=== PATIENT | female | born 1950 ===

== ENCOUNTER → 2017-04-29 09:58 | Emergency (ER) | payer MEDICARE ==
[~2017-04-29 09:58] MED LIST: Iohexol 350* (CONTRAST) 500 ML MDV IV ONE
[2017-04-29 10:44] LABS: Hematocrit 42 % (35-47); Hemoglobin 13.8 g/dl (12.0-16.0); Mean Corpuscular HGB Conc 33 g/dl (31-36); Mean Corpuscular Hemoglobin 30 pg (27-31); Mean Corpuscular Volume 92 fL (80-97); Mean Platelet Volume 8 um3 (7.4-10.4); Red Blood Count 4.54 10^6/ul (4.0-5.4); Red Cell Distribution Width 15 % (10.5-15); White Blood Count 7.5 10^3/ul (3.5-10.8)
--- NOTE | 2017-04-29 10:49 | ED ---
GI/ HPI - HPI Summary HPI Summary: 66F presents with right sided flank and RUQ since . She states it feels like a muscle spasm type pain. It is tender to palpation. She admits to nausea. She renato any vomiting, diarrhea or constipation. She has SOB and cough at baseline which is unchanged which trying to figure out if is asthma or sarcoidosis. She has been using celexa for pain. She denies any chest pain. She denies any dysuria or hematuria. She denies any injury. She denies any fever. She has not been lifting things. She had her gallbladder removed. pain comes in waves. She has never had this before. She has PMH of breast CA, HTN. - History of Current Complaint Chief Complaint: EDChestWallPain Time Seen by Provider: 04/29/17 10:08 Stated Complaint: RT FLANK PAIN Pain Intensity: 7 - Allergy/Home Medications Allergies/Adverse Reactions: Allergies Allergy/AdvReac Type Severity Reaction Status Date / Time Aspirin [ASA] Allergy Intermediate See Comment Verified 04/29/17 10:05 Dipyridamole [From Aggrenox] Allergy Intermediate See Comment Verified 04/29/17 10:05 Fentanyl Allergy Intermediate Vomiting Verified 04/29/17 10:05 Morphine Allergy Intermediate Vomiting Verified 04/29/17 10:05 Oxycodone Allergy Intermediate Vomiting Verified 04/29/17 10:05 Primidone Allergy Unknown Unknown Verified 04/29/17 10:05 Reaction Details PMH/Surg Hx/FS Hx/Imm Hx Endocrine/Hematology History: Denies: Hx Anticoagulant Therapy, Hx Diabetes, Hx Thyroid Disease, Other Endocrine/Hematological Disorders Cardiovascular History: Reports: Hx Hypercholesterolemia, Hx Hypertension, Other Cardiovascular Problems/Disorders - Hx of heart arrhythmia Denies: Hx Pacemaker/ICD Respiratory History: Reports: Hx Asthma Denies: Hx Chronic Obstructive Pulmonary Disease (COPD), Other Respiratory Problems/Disorders GI History: Reports: Other GI Disorders - Ulcerative Colitis History: Denies: Hx Renal Disease, Other Problems/Disorders Musculoskeletal History: Denies: Other Musculoskeletal History Sensory History: Reports: Hx Contacts or Glasses - Glasses, Hx Vision Problem Denies: Hx Hearing Aid, Other Sensory Impairments Opthamlomology History: Reports: Hx Contacts or Glasses - Glasses, Hx Vision Problem Denies: Other Sensory Impairments Neurological History: Reports: Hx Transient Ischemic Attacks (TIA) Denies: Hx Dementia, Hx Seizures, Other Neuro Impairments/Disorders Psychiatric History: Denies: Hx Panic Disorder, Hx Substance Abuse, Other Psychiatric Issues/ Disorders - Cancer History Cancer Type, Location and Year: Breast CA (L) Hx Hematologic Symptoms: No Hx Chemotherapy: Yes Hx Radiation Therapy: Yes - Surgical History Surgery Procedure, Year, and Place: Mastectomy 06/2000 (L). RT KNEE REPLACEMENT 11/2007. TUBAL X2. PARTIAL HYSTERECTOMY. BILATERAL SHOULDER ARTHROSCOPY. BILATERAL KNEE ARTHRO. GALLBLADDER Infectious Disease History: No Infectious Disease History: Denies: Hx Hepatitis, Hx Human Immunodeficiency Virus (HIV), Traveled Outside the [place] in Last 30 Days - Family History Known Family History: Positive: Hypertension - Social History Alcohol Use: None Substance Use Type: Reports: None Smoking Status (MU): Never Smoked Tobacco Review of Systems Negative: Fever Negative: Chest Pain Negative: Shortness Of Breath Positive: Abdominal Pain - RUQ. Negative: Vomiting, Diarrhea, Nausea Positive: flank pain - right All Other Systems Reviewed And Are Negative: Yes Physical Exam Triage Information Reviewed: Yes Vital Signs On Initial Exam: Initial Vitals Temp Pulse Resp BP Pulse Ox 97.0 F 57 16 143/63 98 04/29/17 10:00 04/29/17 10:00 04/29/17 10:00 04/29/17 10:00 04/29/17 10:00 Vital Signs Reviewed: Yes Appearance: Positive: Well-Appearing Skin: Positive: Warm, Dry Head/Face: Positive: Normal Head/Face Inspection Eyes: Positive: Normal, EOMI, LYNNE, Conjunctiva Clear ENT: Positive: Normal ENT inspection, Pharynx normal, TMs normal Respiratory/Lung Sounds: Positive: Clear to Auscultation, Breath Sounds Present Cardiovascular: Positive: Normal, RRR Abdomen Description: Positive: CVA Tenderness (R), Other: - tenderness over rib 11-12 right and RUQ Bowel Sounds: Positive: Present Musculoskeletal: Positive: Normal Neurological: Positive: Normal Psychiatric: Positive: Normal - Herod Coma Scale Coma Scale Total: 15 Diagnostics - Vital Signs Vital Signs Temp Pulse Resp BP Pulse Ox 04/29/17 10:00 97.0 F 57 16 143/63 98 - Laboratory Lab Results: Lab Results 04/29/17 Range/Units 10:23 WBC 7.5 (3.5-10.8) 10^3/ul RBC 4.54 (4.0-5.4) 10^6/ul Hgb 13.8 (12.0-16.0) g/dl Hct 42 (35-47) % MCV 92 (80-97) fL MCH 30 (27-31) pg MCHC 33 (31-36) g/dl RDW 15 (10.5-15) % Plt Count 245 (150-450) 10^3/ul MPV 8 (7.4-10.4) um3 Neut % (Auto) 52.2 (38-83) % Lymph % (Auto) 32.5 (25-47) % [place] % (Auto) 8.6 (1-9) % Eos % (Auto) 5.7 (0-6) % Baso % (Auto) 1.0 (0-2) % Absolute Neuts (auto) 3.9 (1.5-7.7) 10^3/ul Absolute Lymphs (auto) 2.4 (1.0-4.8) 10^3/ul Absolute Monos (auto) 0.6 (0-0.8) 10^3/ul Absolute Eos (auto) 0.4 (0-0.6) 10^3/ul Absolute Basos (auto) 0.1 (0-0.2) 10^3/ul Absolute Nucleated RBC 0.02 10^3/ul Nucleated RBC % 0.2 Result Diagrams: 04/29/17 10:23 04/29/17 10:23 Lab Statement: Any lab studies that have been ordered have been reviewed, and results considered in the medical decision making process. - CT abd CT Interpretation: No Acute Changes - 1. No renal calculi or signs of urinary obstruction. 2. No CT evidence of acute inflammatory change of the gastrointestinal tract within the limitations of a noncontrast enhanced CT of the abdomen and pelvis. 3. Partially visualized overlying the left anterior chest wall is a well-circumscribed fluid density structure of uncertain clinical significance. Please correlate to physical examination and/or the patient's surgical history. 4. Additional chronic, degenerative and iatrogenic findings described in the body the report. CT Interpretation Completed By: Radiologist cta CT Interpretation: No Acute Changes CT Interpretation Completed By: Radiologist SHAHEENU Course/Dx - Course Course Of Treatment: 66F presents with right sided flank and RUQ since . She states it feels like a muscle spasm type pain. It is tender to palpation. She admits to nausea. She renato any vomiting, diarrhea or constipation. She has SOB and cough at baseline which is unchanged which trying to figure out if is asthma or sarcoidosis. She has been using celexa for pain. She denies any chest pain. She denies any dysuria or hematuria. She denies any injury. She denies any fever. She has not been lifting things. She had her gallbladder removed. pain comes in waves. She has never had this before. on exam has tenderness on ribs 11-12 and on right flank. labs normal wbc and crp. got normal CT and no obstruction. d-dimer came back elevated so got CTA. CTA normal. pain likely muscular. will treat with flexeril twice a day as already takes soma at night. explained that can be very sedating. will have follow up with primary. patient understand and agrees with plan. - Diagnoses Differential Diagnoses - Female: Pyelonephritis, Ureteral Calculi, Other - PE Provider Diagnoses: Right flank pain Discharge - Discharge Plan Condition: Good Disposition: HOME Patient Education Materials: Flank Pain (ED) Referrals: Alessandro Yepez MD [Primary Care Provider] - Additional Instructions: Take normal pain medication Take flexeril twice a day, once in morning and once midday Apply ice or heat to area Follow up with primary within 5 days Return to ED if develop any new or worsening symptoms
[2017-04-29 10:53] LABS: Albumin 3.7 g/dL (3.2-5.2); BUN/Creatinine Ratio 20.5 (8-20); Calcium 9.3 mg/dL (8.6-10.3); EGFR African American 87.9 (>60); EGFR Non-African American 68.4 (>60); Potassium 3.6 mmol/L (3.5-5.0); Total Bilirubin 0.4 mg/dL (0.2-1.0); Total Protein 6.7 g/dL (6.4-8.9)
--- NOTE | 2017-04-29 11:13 | RAD ---
CLINICAL HISTORY: Right flank and right upper quadrant pain. Relevant surgical history includes partial hysterectomy and "gallbladder". COMPARISON: None TECHNIQUE: Noncontrast CT examination of the abdomen and pelvis from the lung bases through the initial tuberosities. FINDINGS: VISUALIZED LUNG BASES: Overlying the left lower anterior chest wall is a well-circumscribed fluid density structure beneath the subcutaneous fat (images 1-3). The visualized lung bases are grossly clear. There is no pleural effusion. ABDOMEN AND PELVIS: Evaluation of the solid organs and vasculature is limited without intravenous contrast. The liver, spleen, pancreas and adrenal glands are grossly normal in appearance. The gallbladder is surgically absent. The kidneys are normal in appearance without focal mass, calcification or signs of hydronephrosis. Evaluation of the gastrointestinal tract is limited without oral contrast. The small and large bowel are not distended.The patient's normal appendix is identified in the right lower quadrant with gas in the lumen. There are no acute inflammatory changes in the right lower quadrant to indicate acute appendicitis. Scattered rectosigmoid diverticula are noted but there are no signs of acute inflammatory change.. There is no gross retroperitoneal or mesenteric lymphadenopathy. The uterus is surgically absent. The abdominal aorta and iliac arteries are normal in course and diameter. Degenerative changes include multilevel loss of intervertebral disc height involving the lower thoracic and lumbar spine.There are no sinister bone lesions. IMPRESSION: 1. No renal calculi or signs of urinary obstruction. 2. No CT evidence of acute inflammatory change of the gastrointestinal tract within the limitations of a noncontrast enhanced CT of the abdomen and pelvis. 3. Partially visualized overlying the left anterior chest wall is a well-circumscribed fluid density structure of uncertain clinical significance. Please correlate to physical examination and/or the patient's surgical history. 4. Additional chronic, degenerative and iatrogenic findings described in the body the report.
--- NOTE | 2017-04-29 12:34 | RAD ---
INDICATION: Right-sided rib pain and elevated d-dimer COMPARISON: Most recent comparison chest x-ray is dated March 06, 2013 TECHNIQUE: Axial source images were acquired following the administration of 87 mL Omnipaque [address] angiographic technique. Coronal and sagittal reconstructed images were constructed and reviewed. FINDINGS: There there are no filling defects in the pulmonary arteries to indicate acute pulmonary embolic disease. There are no focal infiltrates or effusions. There are no pulmonary parenchymal masses. The heart is normal in size. There is no evidence of pericardial effusion. There is no evidence of aortic aneurysm or dissection. There is no mediastinal, hilar, or axillary lymphadenopathy. A left breast prosthesis is noted. Multilevel degenerative changes of the thoracic spine include loss of intervertebral disc height. The gallbladder is surgically absent. IMPRESSION: No CT of evidence of pulmonary embolism or other acute cardiopulmonary abnormality.
[2017-04-29 13:03] VITALS: BP 157/66
[2017-04-29 13:33] LABS: Urine Bacteria Absent (Absent); Urine Bilirubin Negative (Negative); Urine Glucose Negative (Negative); Urine Nitrite Negative (Negative)
== END | disposition home or self-care (01) ==
LOC: ED 09:58
DX: R10.84 Generalized abdominal pain (principal); R10.11 Right upper quadrant pain; R06.02 Shortness of breath; R05 Cough
CPT/HCPCS: 36415; 71275; 74176; 80053; 81003; 81015; 83690; 85025; 85379; 86141; 87086; 99282; Q9967

== ENCOUNTER 2017-07-22 12:47 | Emergency (ER) | payer MEDICARE ==
[2017-07-22 13:00] VITALS: BP 145/76
--- NOTE | 2017-07-22 14:07 | UC ---
Jenny Borjas Emily, scribed for Eliecer Hernandez MD on 07/22/17 at 1358 . Skin Complaint HPI - HPI Summary HPI Summary: This patient is a 66 year old F presenting to urgent care with a chief complaint of rash on her pannus that began 3 days ago. The patient rates the pain 2/10 in severity. Symptoms aggravated by nothing. Symptoms alleviated by nothing. Patient reports bleeding from the rash. Patient denies changes in appetites, fever, and chills. Pt denies having similar severity of symptoms previously. - History of Current Complaint Chief Complaint: UCSkin Time Seen by Provider: 07/22/17 13:48 Stated Complaint: SKIN COMPLAINT Hx Obtained From: Patient Onset/Duration: Sudden Onset, Lasting Days, Still Present Onset Severity: Mild Current Severity: Mild Pain Intensity: 2 Pain Scale Used: 0-10 Numeric Location: Other - Pannus Aggravating Factor(s): Nothing Alleviating Factor(s): Nothing Associated Signs & Symptoms: Positive: Rash. Negative: Fever, Chills - Allergy/Home Medications Allergies/Adverse Reactions: Allergies Allergy/AdvReac Type Severity Reaction Status Date / Time MS Aspirin [ASA] Allergy Intermediate See Comment Verified 07/22/17 13:00 MS Dipyridamole Allergy Intermediate See Comment Verified 07/22/17 13:00 [From Aggrenox] MS Fentanyl [Fentanyl] Allergy Intermediate Vomiting Verified 07/22/17 13:00 MS Morphine [Morphine] Allergy Intermediate Vomiting Verified 07/22/17 13:00 MS Oxycodone [Oxycodone] Allergy Intermediate Vomiting Verified 07/22/17 13:00 MS Primidone [Primidone] Allergy Unknown Unknown Verified 07/22/17 13:00 Reaction Details Home Medications: Home Medications Carisoprodol TAB* [Soma TAB*] 350 mg PO Q6H PRN 07/22/17 [History Confirmed ] Clopidogrel TAB* [Plavix TAB*] 75 mg PO DAILY 07/22/17 [History Confirmed ] Folic Acid 1 mg PO 07/22/17 [History] Furosemide TAB* [Lasix TAB*] 10 07/22/17 [History] Golimumab (NF) [Simponi Aria (NF)] 50 mg IV 07/22/17 [History] Hydrocortisone 1% CREAM(NF) [Hytone Cream 1%*] 1 applic TOPICAL 07/22/17 [ History] LORazepam [Ativan 0.5 MG TAB] 0.5 mg PO 07/22/17 [History] Latanoprost 0.005%* [Xalatan 0.005%*] 1 drop LEFT EYE QPM 07/22/17 [History Confirmed 07/22/17] Lidocaine 4% TOPICAL* [Xylocaine Topical 4%*] 1 applic .SEE ORDER 07/22/17 [ History] Meclizine TAB* [Antivert 12.5 TAB*] 12.5 mg PO TID PRN 07/22/17 [History Confirmed 07/22/17] Methotrexate [Xatmep] 2.5 mg PO 07/22/17 [History] Mometasone 220 MCG MDI * [Asmanex 220 MCG MDI *] 1 puff INH 07/22/17 [History] Multivitamin [Daily Multiple Vitamins] 1 tab PO 07/22/17 [History] Nitroglycerin 2% OINT* 1 applic TOPICAL Q8H 07/22/17 [History Confirmed 07/22/17 ] Gilman-3 Fatty Acids/Fish Oil [Fish Oil 1,000 mg Capsule] 2 each PO 07/22/17 [ History] Oxybutynin TAB* [Ditropan TAB*] 10 mg PO BID 07/22/17 [History Confirmed ] Rosuvastatin Calcium [Crestor] 5 mg PO 07/22/17 [History] Zyflamend 1 cap BID 07/22/17 [History] celeCOXIB CAP* [CeleBREX CAP*] 200 mg PO DAILY 07/22/17 [History Confirmed 07/22] Review of Systems Constitutional: Other - Negative fever and chills Skin: Rash, Other - Positive bleeding from rash Gastrointestinal: Other - Negative changes in appetite All Other Systems Reviewed And Are Negative: Yes PMH/Surg Hx/FS Hx/Imm Hx Previously Healthy: No Cardiovascular History: Hypertension Respiratory History: Asthma Other History Of: Negative For: Anticoagulant Therapy - Surgical History Surgical History: Yes Surgery Procedure, Year, and Place: Mastectomy 06/2000 (L). RT KNEE REPLACEMENT 11/2007. TUBAL X2. PARTIAL HYSTERECTOMY. BILATERAL SHOULDER ARTHROSCOPY. BILATERAL KNEE ARTHRO. 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 General: well-appearing, no pain distress Skin: warm, color reflects adequate perfusion, dry, folds of her pannus erythema with skin breakdown and with some satellite lesions at the edges. Mild erythema extends beyond skin breakdown. Head: normal Eyes: EOMI, LYNNE ENT: normal Neck: supple, nontender Respiratory: CTA, breath sounds present Cardiovascular: RRR Abdomen: soft, nontender Bowel: present Musculoskeletal: normal, strength/ROM intact Neurological: normal, sensory/motor intact, A&O x3 Psychological: affect/mood appropriate Triage Information Reviewed: Yes Vital Signs: Initial Vital Signs Temp 97.6 F 07/22/17 12:55 Pulse 62 07/22/17 12:55 Resp 18 07/22/17 12:55 BP 145/76 07/22/17 12:55 Pulse Ox 98 07/22/17 12:55 Vital Signs Reviewed: Yes Course/Dx - Course Course Of Treatment: BP noted and advised to follow up with PCP. Medications reviewed. Allergies reviewed. WILL TREAT WITH TOPICAL KETOCONAZOLE, PO DIFLUCAN AND COVER POSSIBLE BACTERIAL INFECTION WITH KEFLEX. F/U PMD; GET RECHECKED IF WORSE. - Diagnoses Provider Diagnoses: PANNIS YEAST INFECTION WITH SKIN BREAKDOWN. HTN Discharge - Discharge Plan Condition: Stable Disposition: HOME Prescriptions: Cephalexin CAP* [Keflex CAP*] 500 mg PO TID #30 cap Fluconazole [Fluconazole 150 mg tab] 150 mg PO SEE INSTRUCTIONS #4 tab Ketoconazole 2 % CREAM (NF) [Nizoral 2% CREAM (NF)] 1 applic TOPICAL BID #1 tube Patient Education Materials: Skin Yeast Infection (ED) Referrals: Alessandro Yepez MD [Primary Care Provider] - Additional Instructions: FOLLOW UP WITH YOUR DOCTOR THIS WEEK. GET RECHECKED FOR ANY WORSENING OF YOUR CONDITION OR QUESTIONS OR CONCERNS. YOUR BLOOD PRESSURE WAS ELEVATED DURING TODAY'S VISIT; FOLLOW UP WITH YOUR PCP WITHIN ONE WEEK FOR FURTHER EVALUATION. The documentation as recorded by the Jenny walter Emily accurately reflects the service I personally performed and the decisions made by me, Eliecer Hernandez MD.
== END 2017-07-22 14:10 | disposition home or self-care (01) ==
LOC: UCEAST 12:47
DX: B37.2 Candidiasis of skin and nail (principal); I10 Essential (primary) hypertension; J45.909 Unspecified asthma, uncomplicated; Z90.12 Acquired absence of left breast and nipple; Z96.651 Presence of right artificial knee joint; Z90.711 Acquired absence of uterus with remaining cervical stump; Z90.49 Acquired absence of other specified parts of digestive tract; Z88.6 Allergy status to analgesic agent; Z88.1 Allergy status to other antibiotic agents; Z88.5 Allergy status to narcotic agent
CPT/HCPCS: 99212; G0463

== ENCOUNTER 2017-08-24 14:23 | Emergency (ER) | payer MEDICARE ==
[2017-08-24 15:04] VITALS: BP 128/71
--- NOTE | 2017-08-24 15:27 | UC ---
Skin Complaint HPI - HPI Summary HPI Summary: Patient to urgent care this afternoon with cellulitis of her left lateral lower leg patient reports bleeps she itched her leg causing a break in the skin that went on to become cellulitic - History of Current Complaint Chief Complaint: UCLowerExtremity Time Seen by Provider: 08/24/17 15:19 Stated Complaint: SKIN COMPLAINT Hx Obtained From: Patient ?: No Onset/Duration: Sudden Onset, Lasting Days - 2, Still Present Timing: Constant Onset Severity: Moderate Current Severity: Moderate Pain Intensity: 6 Pain Scale Used: 0-10 Numeric Location: Discrete - Left lateral lower leg Character: Pain, Redness - Left lateral calf Aggravating Factor(s): Nothing Alleviating Factor(s): Nothing Associated Signs & Symptoms: Positive: Negative - Allergy/Home Medications Allergies/Adverse Reactions: Allergies Allergy/AdvReac Type Severity Reaction Status Date / Time primidone Allergy Unknown Unknown Verified 08/24/17 15:12 Reaction Details aspirin Allergy See Comment Verified 08/24/17 15:12 dipyridamole [From Aggrenox] Allergy See Comment Verified 08/24/17 15:12 fentanyl Allergy Vomiting Verified 08/24/17 15:12 morphine Allergy Vomiting Verified 08/24/17 15:12 oxycodone Allergy Vomiting Verified 08/24/17 15:12 Review of Systems Constitutional: Negative Skin: Rash - Erythema left lateral calf around a small area of folliculitis that has been scratched open and scabbed over Eyes: Negative ENT: Negative Respiratory: Negative Cardiovascular: Negative Gastrointestinal: Negative Genitourinary: Negative Motor: Negative Neurovascular: Negative Musculoskeletal: Negative Neurological: Negative Psychological: Negative Is Patient Immunocompromised?: No All Other Systems Reviewed And Are Negative: Yes PMH/Surg Hx/FS Hx/Imm Hx Previously Healthy: Yes GI/ History: Gastroesophageal Reflux Psychological History: Anxiety, Depression Cancer History: Breast Cancer Other History Of: Negative For: Anticoagulant Therapy - Surgical History Surgical History: Yes Surgery Procedure, Year, and Place: Mastectomy 06/2000 (L). RT KNEE REPLACEMENT 11/2007. TUBAL X2. PARTIAL HYSTERECTOMY. BILATERAL SHOULDER ARTHROSCOPY. BILATERAL KNEE ARTHRO. GALLBLADDER - Family History Known Family History: Positive: Hypertension - Social History Occupation: Retired Lives: With Family Alcohol Use: None Substance Use Type: None Smoking Status (MU): Never Smoked Tobacco Physical Exam Triage Information Reviewed: Yes Appearance: Well-Appearing, No Pain Distress, Obese Vital Signs: Initial Vital Signs Temp 97.6 F 08/24/17 14:57 Pulse 85 08/24/17 14:57 Resp 18 08/24/17 14:57 BP 128/71 08/24/17 14:57 Pulse Ox 96 08/24/17 14:57 Vital Signs Reviewed: Yes Eye Exam: Normal Eyes: Positive: Conjunctiva Clear ENT Exam: Normal ENT: Positive: Normal ENT inspection, Hearing grossly normal. Negative: Trismus , Muffled voice, Hoarse voice Neck exam: Normal Neck: Positive: Supple, Nontender Respiratory Exam: Normal Respiratory: Positive: No respiratory distress, No accessory muscle use Cardiovascular Exam: Normal Cardiovascular: Positive: RRR, No Murmur, Pulses Normal, Brisk Capillary Refill Musculoskeletal Exam: Normal Musculoskeletal: Positive: Strength Intact, ROM Intact, No Edema Neurological Exam: Normal Neurological: Positive: Alert, Muscle Tone Normal Psychological Exam: Normal Skin: Positive: Other - Area on lateral left lower leg of erythema that is tender to touch with a center area of apparent folliculitis that it been scratched and is now scabbed over tenderness no streaking no cord Course/Dx - Course Course Of Treatment: Warm compresses doxycycline Tylenol ibuprofen for pain as patient tolerates follow with primary care provider - Diagnoses Provider Diagnoses: Cellulitis left lower leg Discharge - Sign-Out/Discharge Documenting (check all that apply): Discharge - Discharge Plan Condition: Stable Disposition: HOME Prescriptions: DOXYcycline CAP(*) [DOXYcycline 100MG CAP(*)] 100 mg PO BID #20 cap Mupirocin 2% OINT* [Bactroban 2 % Oint*] 1 applic TOPICAL BID #1 tube Patient Education Materials: Cellulitis (ED), Warm Compress or Soak (ED) Referrals: Alessandro Yepez MD [Primary Care Provider] - 3 Days - Billing Disposition and Condition Condition: STABLE Disposition: HOME
== END 2017-08-24 15:41 | disposition home or self-care (01) ==
LOC: UCEAST 14:23
DX: L03.116 Cellulitis of left lower limb (principal); K21.9 Gastro-esophageal reflux disease without esophagitis; F41.9 Anxiety disorder, unspecified; F32.9 Major depressive disorder, single episode, unspecified; Z85.3 Personal history of malignant neoplasm of breast; Z96.651 Presence of right artificial knee joint; Z88.6 Allergy status to analgesic agent; Z88.5 Allergy status to narcotic agent
CPT/HCPCS: 99212; G0463

== ENCOUNTER 2021-07-06 19:38 | Inpatient (IN) ==
[2021-07-06 21:57] LABS: ABS Lymphocytes 0.3 10^3/ul (1.0-4.8); ABS Monocytes 0.1 10^3/ul (0-0.8); ABS Neutrophils 6.9 10^3/ul (1.5-7.7); Hematocrit 38 % (35-47); Hemoglobin 12.6 g/dL (12.0-16.0); Lymphocyte % 3.8 %; Mean Corpuscular HGB Conc 33 g/dL (31-36); Mean Corpuscular Hemoglobin 30 pg (27-31); Mean Corpuscular Volume 89 fL (80-97); Mean Platelet Volume 6.8 fL (7.4-10.4); Platelet Count 276 10^3/uL (150-450); Red Blood Count 4.25 10^6 /uL (3.70-4.87); Red Cell Distribution Width 18 % (10-15); White Blood Count 7.3 10^3/uL (3.5-10.8)
[2021-07-06] MEDS: Lidocaine PATCH 5% PATCH TRANSDERM SCH (23:15)
[2021-07-06 23:35] LABS: Albumin 3.3 g/dL (3.2-5.2); C Reactive Protein 42.55 mg/L (<8.01); Calcium 8.1 mg/dL (8.6-10.3); Globulin 3.2 g/dL (2-4); Magnesium 1.9 mg/dL (1.9-2.7); Potassium 3.5 mmol/L (3.5-5.0); Total Bilirubin 0.5 mg/dL (0.2-1.0); Total Protein 6.5 g/dL (6.4-8.9); eGFR CKD-EPI 97.3 (>60)
[2021-07-07] MEDS ORDERED: Dexamethasone IV 10 MG in NS 0.9% 50 ML 50 ML IVPB ONE (02:05)
[2021-07-07] MEDS ORDERED: Dexamethasone IV 4 MG/ML VIAL 1 ml VIAL IV SLOW PU ONE (02:15)
[2021-07-07] MEDS: Calcium/Vitamin D TAB 250/125 TAB PO SCH ×2 (08:01→21:11)
[2021-07-07] MEDS: Venlafaxine XR 75 mg PO SCH (08:01)
[2021-07-07] MEDS: Sulfamethox/Trimethoprim DS TAB 800/160 mg PO SCH (08:32)
[2021-07-07] MEDS: Heparin 5000 UNITS/ML 1 mL VIAL SUBCUT SCH (18:30)
[2021-07-07] MEDS: Nystatin TOP POWDER 15 GM BTL TOPICAL SCH (21:12)
[2021-07-07] MEDS: Latanoprost 0.005% 2.5 ml BTL BOTH EYES SCH (21:13)
[2021-07-07] MEDS: Lidocaine PATCH 5% PATCH TRANSDERM SCH (21:17)
[2021-07-07] MEDS: Lidocaine Patch REMOVE NOTE PATCH OFF SCH (21:59)
[2021-07-08] MEDS: Heparin 5000 UNITS/ML 1 mL VIAL SUBCUT SCH ×2 (05:41→15:43)
[2021-07-08 07:08] LABS: Calcium 8.9 mg/dL (8.6-10.3); Magnesium 2.2 mg/dL (1.9-2.7); Potassium 3.6 mmol/L (3.5-5.0); eGFR CKD-EPI 96.1 (>60)
[2021-07-08 07:29] LABS: Hematocrit 39 % (35-47); Hemoglobin 12.8 g/dL (12.0-16.0); Mean Corpuscular HGB Conc 33 g/dL (31-36); Mean Corpuscular Hemoglobin 30 pg (27-31); Mean Corpuscular Volume 90 fL (80-97); Platelet Count 306 10^3/uL (150-450); Red Blood Count 4.35 10^6 /uL (3.70-4.87); Red Cell Distribution Width 19 % (10-15); White Blood Count 10.8 10^3/uL (3.5-10.8)
[2021-07-08] MEDS ORDERED: Senna TAB 8.6 mg TAB PO PRN (08:13)
[2021-07-08] MEDS: Calcium/Vitamin D TAB 250/125 TAB PO SCH ×2 (10:37→20:43)
[2021-07-08] MEDS: Venlafaxine XR 75 mg PO SCH (10:38)
[2021-07-08] MEDS: Nystatin TOP POWDER 15 GM BTL TOPICAL SCH ×3 (10:39→20:52)
[2021-07-08 19:12] LABS: ABS Lymphocytes 0.6 10^3/ul (1.0-4.8); ABS Monocytes 0.4 10^3/ul (0-0.8); ABS Neutrophils 8.5 10^3/ul (1.5-7.7); Hematocrit 41 % (35-47); Hemoglobin 12.8 g/dL (12.0-16.0); Lymphocyte % 6.3 %; Mean Corpuscular HGB Conc 32 g/dL (31-36); Mean Corpuscular Hemoglobin 29 pg (27-31); Mean Corpuscular Volume 91 fL (80-97); Mean Platelet Volume 6.8 fL (7.4-10.4); Platelet Count 346 10^3/uL (150-450); Red Blood Count 4.46 10^6 /uL (3.70-4.87); Red Cell Distribution Width 19 % (10-15); White Blood Count 9.5 10^3/uL (3.5-10.8)
[2021-07-08 19:13] LABS: Activated Partial Thrombo Time 26.3 seconds (26.0-38.0); INR 1.04 (0.86-1.15)
[2021-07-08 19:18] LABS: eGFR CKD-EPI 94.6 (>60)
[2021-07-08] MEDS: Lidocaine PATCH 5% PATCH TRANSDERM SCH (20:41)
[2021-07-08] MEDS: Lidocaine Patch REMOVE NOTE PATCH OFF SCH (20:44)
[2021-07-08] MEDS: Latanoprost 0.005% 2.5 ml BTL BOTH EYES SCH (20:52)
[2021-07-08] MEDS: Polyethylene Glycol 3350 17 GM PACKET PO SCH (20:52)
[2021-07-08] MEDS ORDERED: Heparin 5000 UNITS/ML 1 mL VIAL SUBCUT SCH (22:00)
[2021-07-09 06:24] LABS: Hematocrit 39 % (35-47); Hemoglobin 12.5 g/dL (12.0-16.0); Mean Corpuscular HGB Conc 32 g/dL (31-36); Mean Corpuscular Hemoglobin 28 pg (27-31); Mean Corpuscular Volume 89 fL (80-97); Mean Platelet Volume 6.9 fL (7.4-10.4); Platelet Count 336 10^3/uL (150-450); Red Blood Count 4.39 10^6 /uL (3.70-4.87); Red Cell Distribution Width 19 % (10-15); White Blood Count 8.4 10^3/uL (3.5-10.8)
[2021-07-09 06:40] LABS: Albumin 3.2 g/dL (3.2-5.2); Globulin 3.1 g/dL (2-4); Magnesium 1.9 mg/dL (1.9-2.7); Potassium 3.4 mmol/L (3.5-5.0); Total Bilirubin 0.3 mg/dL (0.2-1.0); Total Protein 6.3 g/dL (6.4-8.9); eGFR CKD-EPI 94.6 (>60)
[2021-07-09] MEDS: Venlafaxine XR 75 mg PO SCH (08:26)
[2021-07-09] MEDS: Potassium Chlor 20 meq TAB.ER PO SCH ×2 (08:26→22:10)
[2021-07-09] MEDS: Polyethylene Glycol 3350 17 GM PACKET PO SCH ×2 (08:27→22:02)
[2021-07-09] MEDS: Calcium/Vitamin D TAB 250/125 TAB PO SCH ×2 (08:28→21:54)
[2021-07-09] MEDS: Nystatin TOP POWDER 15 GM BTL TOPICAL SCH ×2 (08:30→15:48)
[2021-07-09] MEDS: Lidocaine Patch REMOVE NOTE PATCH OFF SCH (08:30)
[2021-07-09] MEDS: Sulfamethox/Trimethoprim DS TAB 800/160 mg PO SCH (08:32)
[2021-07-09] MEDS: Lidocaine PATCH 5% PATCH TRANSDERM SCH (21:54)
[2021-07-09] MEDS: Latanoprost 0.005% 2.5 ml BTL BOTH EYES SCH (22:10)
[2021-07-10] MEDS: Nystatin TOP POWDER 15 GM BTL TOPICAL SCH ×4 (02:40→20:27)
[2021-07-10 06:46] LABS: Calcium 8.8 mg/dL (8.6-10.3); Magnesium 1.9 mg/dL (1.9-2.7); eGFR CKD-EPI 96.9 (>60)
[2021-07-10] MEDS: Polyethylene Glycol 3350 17 GM PACKET PO SCH ×2 (08:10→20:17)
[2021-07-10] MEDS: Venlafaxine XR 75 mg PO SCH (08:10)
[2021-07-10] MEDS: Calcium/Vitamin D TAB 250/125 TAB PO SCH ×2 (08:11→20:27)
[2021-07-10] MEDS: Lidocaine Patch REMOVE NOTE PATCH OFF SCH (08:18)
[2021-07-10] MEDS: Lidocaine PATCH 5% PATCH TRANSDERM SCH (20:26)
[2021-07-10] MEDS: Latanoprost 0.005% 2.5 ml BTL BOTH EYES SCH (20:27)
[2021-07-11 05:05] LABS: ABS Lymphocytes 2.3 10^3/ul (1.0-4.8); ABS Monocytes 0.7 10^3/ul (0-0.8); ABS Neutrophils 5.1 10^3/ul (1.5-7.7); Hematocrit 41 % (35-47); Hemoglobin 13.4 g/dL (12.0-16.0); Lymphocyte % 28.6 %; Mean Corpuscular HGB Conc 33 g/dL (31-36); Mean Corpuscular Hemoglobin 29 pg (27-31); Mean Corpuscular Volume 89 fL (80-97); Mean Platelet Volume 6.7 fL (7.4-10.4); Nucleated Red Blood Cells % 0.1; Platelet Count 350 10^3/uL (150-450); Red Blood Count 4.62 10^6 /uL (3.70-4.87); Red Cell Distribution Width 18 % (10-15); White Blood Count 8.2 10^3/uL (3.5-10.8)
[2021-07-11] MEDS: Calcium/Vitamin D TAB 250/125 TAB PO SCH ×2 (07:59→19:32)
[2021-07-11] MEDS: Polyethylene Glycol 3350 17 GM PACKET PO SCH ×2 (07:59→19:32)
[2021-07-11] MEDS: Nystatin TOP POWDER 15 GM BTL TOPICAL SCH ×3 (08:01→19:35)
[2021-07-11] MEDS: Lidocaine Patch REMOVE NOTE PATCH OFF SCH (08:01)
[2021-07-11] MEDS: Venlafaxine XR 75 mg PO SCH (08:01)
[2021-07-11] MEDS: Lidocaine PATCH 5% PATCH TRANSDERM SCH (19:33)
[2021-07-11] MEDS: Latanoprost 0.005% 2.5 ml BTL BOTH EYES SCH (19:35)
[2021-07-12] MEDS: Polyethylene Glycol 3350 17 GM PACKET PO SCH ×2 (09:15→20:01)
[2021-07-12] MEDS: Venlafaxine XR 75 mg PO SCH (09:18)
[2021-07-12] MEDS: Calcium/Vitamin D TAB 250/125 TAB PO SCH ×2 (09:19→19:58)
[2021-07-12] MEDS: Sulfamethox/Trimethoprim DS TAB 800/160 mg PO SCH (09:22)
[2021-07-12] MEDS: Nystatin TOP POWDER 15 GM BTL TOPICAL SCH ×3 (09:33→19:59)
[2021-07-12] MEDS: Lidocaine Patch REMOVE NOTE PATCH OFF SCH (12:59)
[2021-07-12] MEDS: Latanoprost 0.005% 2.5 ml BTL BOTH EYES SCH (19:57)
[2021-07-12] MEDS: Lidocaine PATCH 5% PATCH TRANSDERM SCH (19:57)
[2021-07-13] MEDS ORDERED: COVID-19 VACCINE, TRIS(PFIZER)/PF 30 MCG/0.3 ML IM ONE (08:00)
[2021-07-13] MEDS: Polyethylene Glycol 3350 17 GM PACKET PO SCH (10:58)
[2021-07-13] MEDS: Calcium/Vitamin D TAB 250/125 TAB PO SCH ×2 (11:00→20:49)
[2021-07-13] MEDS: Venlafaxine XR 75 mg PO SCH (11:01)
[2021-07-13] MEDS: Lidocaine Patch REMOVE NOTE PATCH OFF SCH (11:04)
[2021-07-13] MEDS: Nystatin TOP POWDER 15 GM BTL TOPICAL SCH ×2 (11:04→15:00)
[2021-07-13] MEDS: Lidocaine PATCH 5% PATCH TRANSDERM SCH (20:50)
[2021-07-13] MEDS: Latanoprost 0.005% 2.5 ml BTL BOTH EYES SCH (21:10)
[2021-07-14] MEDS: Polyethylene Glycol 3350 17 GM PACKET PO SCH ×3 (00:04→20:57)
[2021-07-14] MEDS: Nystatin TOP POWDER 15 GM BTL TOPICAL SCH ×4 (00:04→21:07)
[2021-07-14] MEDS: Lidocaine Patch REMOVE NOTE PATCH OFF SCH (07:56)
[2021-07-14] MEDS: Sulfamethox/Trimethoprim DS TAB 800/160 mg PO SCH (09:44)
[2021-07-14] MEDS: Calcium/Vitamin D TAB 250/125 TAB PO SCH ×2 (09:45→21:02)
[2021-07-14] MEDS: Venlafaxine XR 75 mg PO SCH (09:45)
[2021-07-14] MEDS ORDERED: METHOTREXATE SCH (10:00)
[2021-07-14 10:10] LABS: Rapid COVID-19 Molecular Undetected (Undetected)
[2021-07-14] MEDS: Latanoprost 0.005% 2.5 ml BTL BOTH EYES SCH (21:04)
[2021-07-14] MEDS: Lidocaine PATCH 5% PATCH TRANSDERM SCH (21:05)
[2021-07-15] MEDS: Polyethylene Glycol 3350 17 GM PACKET PO SCH (07:19)
[2021-07-15] MEDS: Nystatin TOP POWDER 15 GM BTL TOPICAL SCH (09:11)
[2021-07-15] MEDS: Calcium/Vitamin D TAB 250/125 TAB PO SCH (09:13)
[2021-07-15] MEDS: Venlafaxine XR 75 mg PO SCH (09:13)
[2021-07-15] MEDS: Lidocaine Patch REMOVE NOTE PATCH OFF SCH (09:32)
[2021-07-15 09:34] VITALS: BP 133/81
== END 2021-07-15 11:00 | DRG 552 ==
LOC: INTOOBSV 21:22 → SSU 21:22 → SUATTDRO 21:22
PROVIDERS: ADMIT Internal Medicine; ATTEND Student in an Organized Health Care Education/Training Program